=== PATIENT | male | born 1990 | race Caucasian/White ===

== ENCOUNTER 2019-07-25 06:35 | Day surgery (SDC) | payer OTHER | END 2019-07-25 17:45 | disposition home or self-care (01) | LOC: EDSEX → CIR.AMB 06:35 | DX: M66.362 Spontaneous rupture of flexor tendons, left lower leg (principal) ==

== ENCOUNTER 2020-11-22 13:51 | Outpatient (CLI) | payer OTHER | END 2020-11-22 14:00 | disposition home or self-care (01) | LOC: RAD 13:51 | PROVIDERS: ATTEND Orthopaedic Surgery | DX: M77.32 Calcaneal spur, left foot (principal); M25.572 Pain in left ankle and joints of left foot ==